=== PATIENT | female | born 1945 | race Caucasian/White ===

== ENCOUNTER 2016-09-16 08:28 | Day surgery (SDC) | payer MEDICARE, BC ==
[~2016-09-16] VITALS: Ht 147.3 cm; Wt 60.0 kg
--- NOTE | ~2016-09-16 | PRO ---
PATIENT:EZEQUIEL VASQUES MEDICAL RECORD: [id number] : 43 LOCATION:D.OPS ADMISSION DATE: 09/16/16 PROCEDURE PERFORMED BY: AJ JOHNSON MD DATE OF PROCEDURE: 09/16/2016 DATE OF PROCEDURE: 09/16/2016. NURSING CONSULTANT: Aj Johnson MD. PROCEDURE: EGD with Savary dilatation to 48-Congolese size, and duodenal biopsy. INDICATION: The patient is a 71-year-old white female with a history of reflux disease, colon polyps and occasional proctalgia, who basically presents for repeat EGD with dilatation in light of her dysphagia. She also has some concern about mild possible absorption issues and would like to be checked for celiac sprue. Her last EGD was back in November 2014 and revealed a moderate sized hiatal hernia and minimal stenosis which was dilated. She also has some C-spine issues probably causing a lot of her oropharyngeal dysphagia problems. She is now for EGD. PREMEDICATION: Taper anesthesia. INSTRUMENT: Olympus video gastroscope. FINDINGS: The endoscope was passed through the oropharynx to the second portion of duodenum without difficulty. The esophagus was basically normal with the exception of a moderate sized 6-cm hiatal hernia. There was minimal if any stenosis present. She did have a somewhat rigid C-spine and I could only dilate her esophagus with a 48-Congolese Savary dilator over wire. I did not want to try to pass a larger dilator pass the oropharyngeal area. The stomach and duodenum were entered and were basically normal other than mild antral gastritis. I took biopsies from throughout the antrum to rule out H. pylori by means of histology. I also took some biopsies from a normal looking duodenum to rule out celiac sprue. The patient tolerated the procedure well without any immediate complications. IMPRESSION: 1. Moderate size 6-cm hiatal hernia. 2. Mild antral gastritis status post biopsy. 3. Normal duodenum, status post biopsy. 4. Minimal, if any esophageal stenosis now status post Savary dilation with a 48-Congolese Savary dilator. 5. Obvious C-spine rigidity which is probably cause of most of her oropharyngeal type dysphagia. PLAN: PROCEDURE NOTE [id number] EZEQUIEL VASQUES 1. Follow up biopsy results times 3. I took some biopsies from her mid esophagus area to rule out eosinophilic esophagitis. 2. Repeat EGD with dilatation. 3. Follow up with me on an as needed basis. cc: Deisy Rosario M.D. TRANSINT:[id number] Voice Confirmation ID: [id number] DOCUMENT ID: [id number] AJ JOHNSON MD CC: MAYKEL ZHU MD [id number] DICTATION DATE: 09/16/16 1220 CLIENT ADMINISTRATOR: 09/17/16 [id number] [facility] [place] 09/16/16 [place] [id number]
[~2016-09-16 08:28] MED LIST: COD LIVER OIL PO; PEPCID40 MG PO; SYNTHROID100 MCG PO; VITAMIN B COMPL1 TAB PO; VITAMIN E200 UNI1 PO
[2016-09-16 09:10] LABS: HEMATOCRIT 38.3 % (36.0-48.0); HEMOGLOBIN 13.1 g/dL (12-16); MCH 31.5 pg (26.0-34.0); MCHC 34.2 g/dL (31.0-37.0); MCV 92.1 fL (80.0-100.0); MEAN PLATELET VOLUME 10.6 fL (7.4-10.4); RBC 4.16 10x6/uL (4.00-5.40); RDW 14.1 % (11.5-14.5); WBC 5.5 10x3/uL (4.8-10.8)
[2016-09-16] MEDS ORDERED: FORTEO PEN20 MCG SQ (09:27)
[2016-09-16 09:42] VITALS: BP 158/55; Ht 147.3 cm; Wt 60.0 kg
--- NOTE | 2016-09-16 12:11 | NUR ---
1207-DILATE ESOPHAGUS WITH 48.
--- NOTE | 2016-09-16 13:22 | NUR ---
1310--IV DC'D, PT DRESSING AT THIS TIME. JACEK HASSAN 1320--DISCHARGE INSTRUCTIONS GIVEN, PT VERBALIZES UNDERSTANDING. PT OFF UNIT VIA WC. JACEK HASSAN
== END 2016-09-16 13:20 | disposition home or self-care (01) ==
LOC: D.OPS 08:28
PROVIDERS: Anesthesiology
DX: K44.9 Diaphragmatic hernia without obstruction or gangrene (principal); K29.50 Unspecified chronic gastritis without bleeding; K22.2 Esophageal obstruction; M53.82 Other specified dorsopathies, cervical region